=== PATIENT | male | born 1945 | race Caucasian/White ===

== ENCOUNTER → 2019-03-11 | Outpatient (CLI) | payer OTHER ==
[~2019-03-11] MED LIST: AGELESS MALE PO; ALLOPURINOL 30300 M2 PO; ALTACE10 MG PO; ASPIRIN325 PO; COREG PO; DIABETA 5MG TABL5 MG PO; FLOMAX0.4 MG PO; JOINT SUPPLEMENT PO; KRILL OIL500 MG PO; LIPITOR PO; LIPITOR10 MG PO; LUTEIN PO; METFORMIN HCL500 MG PO; SUPERBETA PROSTATE PO; TOPROL XL25 MG PO
--- NOTE | 2019-03-11 08:02 | EKG ---
[address] [address] ELECTROCARDIOGRAM REPORT Name: ROBERT CALI Room #: [facility]#: [id number] ������������������ Admission: 03/11/19 ������������������ Attend Phys: Amaury Ascencio MD Discharge: ������������������ Date of : 47 Report #: [id number] ����������������������������������������������������������������� [id number] THIS REPORT FOR: //name// [facility] Test Date: 2019-03-11 Test Time: 06:35:51 Pat Name: ROBERT CALI Department: Room: Gender: Metal Melter: annelise : 1945 Requested By: Amaury Ascencio Order Number: [id number] MD: Pietro Dorantes Measurements Intervals [place] Rate: 60 P: 53 NE: 220 QRS: 64 QRSD: 108 T: 3 QT: 387 QTc: 387 Interpretive Statements Sinus rhythm Borderline prolonged NE interval Compared to ECG 03/03/2015 07:49:56 Ventricular premature complex(es) no longer present Electronically Signed On 03-11-2019 8:02:42 CDT by Pietro Dorantes [email or web address] ��������������������������������������������� <ELECTRONICALLY SIGNED> ���������������������������������������� By: Pietro Dorantes MD ��������������������������������������������� 03/11/19801 Pietro Dorantes MD /VALE
== END | disposition home or self-care (01) ==
LOC: LITH 05:59
DX: N20.0 Calculus of kidney (principal); I10 Essential (primary) hypertension; E78.00 Pure hypercholesterolemia, unspecified; I25.10 Atherosclerotic heart disease of native coronary artery without angina pectoris; I25.2 Old myocardial infarction; E11.9 Type 2 diabetes mellitus without complications; Z96.643 Presence of artificial hip joint, bilateral; Z98.890 Other specified postprocedural states; Z79.899 Other long term (current) drug therapy